=== PATIENT | female | born 1960 | race Caucasian/White ===

== ENCOUNTER → 2021-12-20 | Outpatient (CLI) | payer OTHER | LOC: SJCVCIMAG 13:15 | PROVIDERS: ATTEND Nuclear Medicine Nuclear Cardiology | DX: I82.813 Embolism and thrombosis of superficial veins of lower extremities, bilateral (principal); I87.302 Chronic venous hypertension (idiopathic) without complications of left lower extremity; I87.2 Venous insufficiency (chronic) (peripheral); M79.89 Other specified soft tissue disorders ==

== ENCOUNTER → 2021-12-26 | Outpatient (CLI) | payer OTHER ==
[~2021-12-26] VITALS: Ht 177.8 cm; Wt 78.0 kg
[~2021-12-26] MED LIST: INDERAL LA120 M1 PO; MONTELUKAST SODI4 M1 PO; OMEPRAZOLE 20 M20 M1 PO; SLEEP AID50 MG PO; VITAMIN D325 MC3 PO; XARELTO20 MG PO; XYZAL5 MG PO
[2021-12-26 07:30] LABS: HEMATOCRIT 39.8 % (37.0-47.0); HEMOGLOBIN 13.2 gm/dL (12.0-15.0); MCH 30.3 pg (26.0-34.0); MCHC 33.1 g/dL (28.0-37.0); MCV 91.6 fL (80.0-100.0); RBC 4.35 mil/uL (4.20-5.00); RDW 13.4 % (10.5-14.5); WBC 4.8 thou/uL (4.0-11.0)
[2021-12-26 07:35] VITALS: BP 118/54
[2021-12-26 07:38] LABS: CALCIUM 9.9 mg/dL (8.5-10.1); CREATININE 0.9 mg/dL (0.6-1.0); POTASSIUM 4.5 mmol/L (3.5-5.1)
== END | disposition home or self-care (01) ==
LOC: CATH 06:41
PROVIDERS: ATTEND Nuclear Medicine Nuclear Cardiology
DX: I87.1 Compression of vein (principal); I87.323 Chronic venous hypertension (idiopathic) with inflammation of bilateral lower extremity; R22.43 Localized swelling, mass and lump, lower limb, bilateral; K21.9 Gastro-esophageal reflux disease without esophagitis; Z98.890 Other specified postprocedural states; Z79.899 Other long term (current) drug therapy; Z90.49 Acquired absence of other specified parts of digestive tract; Z86.718 Personal history of other venous thrombosis and embolism; Z79.01 Long term (current) use of anticoagulants